=== PATIENT | male | born 1950 | race Caucasian/White ===

== ENCOUNTER 2017-12-28 22:49 | Observation (INO) | payer MEDICARE, OTHER ==
[2017-12-28] MEDS ORDERED: ASPIRIN 81 MG PO STA (23:05)
[2017-12-28] MEDS ORDERED: SODIUM CHLORIDE 0.9% 1,000 ML IV STA (23:05)
[2017-12-28] MEDS ORDERED: MORPHINE SULFATE 4 MG/ML SYRINGE IV PRN (23:05)
[2017-12-28] MEDS ORDERED: HEPARIN SODIUM,PORCINE 5,000 UNIT/ML 1 ML VIAL IV ONE (23:05)
[2017-12-28] MEDS ORDERED: HEPARIN SODIUM,PORCINE 5,000 UNIT/ML 1 ML VIAL IV PRN (23:05)
[2017-12-28] MEDS ORDERED: NITROGLYCERIN SL TABS 0.4 MG TAB SUBLINGUAL PRN (23:05)
--- NOTE | 2017-12-28 23:10 | ED ---
General Adult HPI - General Chief complaint: Chest Pain Stated complaint: chest pain Time Seen by Provider: 12/28/17 22:56 Source: EMS, RN notes reviewed, old records reviewed Mode of arrival: EMS Limitations: no limitations - History of Present Illness Initial comments: This is a 67-year-old male to the ER for evaluation of chest pain. Patient has history of high blood pressure high cholesterol. Patient has multiple ER visits for chest pain in the past but no significant heart attack. Patient has recent travel history no sick contacts no fevers. Patient was shoveling is nontender right-sided chest pain, he did go inside without continued symptoms, chest pain improved but occasionallyhad SOB tonight and again had severe chest pain tonight. States patient told them to call EMS which they never have done in the past. Patient has never come the hospital per EMS his chest pain is significantly worse at this time. Patient felt warm but no significant diaphoresis, no current shortness of breath - Related Data Home Medications Medication Instructions Recorded Confirmed Aspirin 81 mg PO DAILY 02/13/15 12/28/17 Atorvastatin [Lipitor] 80 mg PO HS 02/13/15 12/28/17 Cholecalciferol (Vitamin D3) 2,000 unit PO DAILY 12/28/17 12/28/17 [Vitamin D3] Losartan Potassium [Cozaar] 25 mg PO DAILY 12/28/17 12/28/17 Tamsulosin [Flomax] 0.4 mg PO HS 12/28/17 12/28/17 Allergies Allergy/AdvReac Type Severity Reaction Status Date / Time No Known Allergies Allergy Verified 12/28/17 23:05 Review of Systems ROS Statement: Those systems with pertinent positive or pertinent negative responses have been documented in the HPI. ROS Other: All systems not noted in ROS Statement are negative. Past Medical History Past Medical History: Hyperlipidemia, Hypertension History of Any Multi-Drug Resistant Organisms: None Reported Past Surgical History: Back Surgery Past Anesthesia/Blood Transfusion Reactions: No Reported Reaction Past Psychological History: No Psychological Hx Reported Smoking Status: Never smoker Past Alcohol Use History: Occasional Past Drug Use History: None Reported - Past Family History Mother Family Medical History: Cancer Brother(s) Family Medical History: AFIB, Diabetes Mellitus, Myocardial Infarction ([place]) Additional Family Medical History / Comment(s): CABG General Exam Limitations: no limitations General appearance: alert, in no apparent distress Head exam: Present: atraumatic, normocephalic, normal inspection Eye exam: Present: normal appearance, PERRL, EOMI. Absent: scleral icterus, conjunctival injection, periorbital swelling ENT exam: Present: normal exam, mucous membranes moist Neck exam: Present: normal inspection. Absent: tenderness, meningismus, lymphadenopathy Respiratory exam: Present: normal lung sounds bilaterally. Absent: respiratory distress, wheezes, rales, rhonchi, stridor Cardiovascular Exam: Present: regular rate, normal rhythm, normal heart sounds. Absent: systolic murmur, diastolic murmur, rubs, gallop, clicks GI/Abdominal exam: Present: soft, normal bowel sounds. Absent: distended, tenderness, guarding, rebound, rigid Extremities exam: Present: normal inspection, full ROM, normal capillary refill. Absent: tenderness, pedal edema, joint swelling, calf tenderness Back exam: Present: normal inspection Neurological exam: Present: alert, oriented X3, CN II-XII intact Psychiatric exam: Present: normal affect, normal mood Skin exam: Present: warm, dry, intact, normal color. Absent: rash Course Vital Signs 12/28/17 12/29/17 22:57 00:10 Temperature 97.2 F L Pulse Rate 87 73 Respiratory 18 18 Rate Blood Pressure 154/80 152/85 O2 Sat by Pulse 97 97 Oximetry - Reevaluation(s) Reevaluation #1: 12/28/17 23:08 Medical record is reviewed, prior heart and chest pain observations Reevaluation #2: 12/28/17 23:08 Chest pain symptoms improved with nitro per EMS EKG Findings - EKG Comments: EKG Findings:: EKG shows sinus rhythm rate of 75, MD 150, QRS 74, QTC 437 Medical Decision Making - Medical Decision Making 67 male the ER for evaluation regarding chest pain. Patient be admitted for cardiac observation, serial troponins telemetry and anticoagulation - Lab Data Result diagrams: 12/29/17 05:20 12/28/17 23:09 - Radiology Data Radiology results: report reviewed (Chest x-rays negative for acute disease), image reviewed Critical Care Time Critical Care Time: Yes Total Critical Care Time: 31 Disposition Clinical Impression: Chest pain Disposition: ADMITTED IP TO THIS [facility] Condition: Undetermined
[2017-12-28] MEDS ORDERED: HEPARIN SOD,PORK IN 0.45% NACL 25,000 UNIT in 0.45% NACL 1 500ML.BAG IV SCH (23:15)
[2017-12-28 23:26] LABS: Basophils # (A) 0.1 k/uL (0-0.2); Basophils % (A) 1 %; Eosinophils # (A) 0.1 k/uL (0-0.7); Eosinophils % (A) 2 %; HCT 43.7 % (39.0-53.0); HGB 14.4 gm/dL (13.0-17.5); Lymphocytes # (A) 2.2 k/uL (1.0-4.8); Lymphocytes % (A) 29 %; MCH 28.5 pg (25.0-35.0); MCV 86.5 fL (80.0-100.0); Mean Platelet Volume 8.1; Monocytes # (A) 0.7 k/uL (0-1.0); Monocytes % (A) 9 %; Neutrophils # (A) 4.1 k/uL (1.3-7.7); Neutrophils % (A) 56 %; Platelet Count 184 k/uL (150-450); RBC 5.06 m/uL (4.30-5.90); RDW 12.5 % (11.5-15.5); WBC 7.4 k/uL (3.8-10.6)
--- NOTE | 2017-12-28 23:34 | XR ---
EXAMINATION TYPE: XR chest 2V DATE OF EXAM: 12/28/2017 COMPARISON: 12/23/2012 HISTORY: Short of breath. Chest tightness. TECHNIQUE: Frontal and lateral views of the chest are obtained. FINDINGS: Heart and mediastinum are normal. Lungs are clear. Diaphragm is normal. Bony thorax is int act. IMPRESSION: Normal chest. No change.
[2017-12-28 23:42] LABS: Partial Thromboplastin Time 24.5 sec (22.0-30.0); Prothrombin Time 10.2 sec (9.0-12.0)
[2017-12-28 23:43] LABS: ALT 42 U/L (21-72); AST 32 U/L (17-59); Albumin 4.1 g/dL (3.5-5.0); Alkaline Phosphatase 67 U/L (38-126); Anion Gap 12 mmol/L; Blood Urea Nitrogen 19 mg/dL (9-20); Calcium 9.5 mg/dL (8.4-10.2); Carbon Dioxide 24 mmol/L (22-30); Chloride 105 mmol/L (98-107); Glucose 136 mg/dL (74-99); Lipase 74 U/L (23-300); Magnesium 2.1 mg/dL (1.6-2.3); Potassium 4.1 mmol/L (3.5-5.1); Sodium 141 mmol/L (137-145); Total Bilirubin 0.4 mg/dL (0.2-1.3); Total Protein 7.3 g/dL (6.3-8.2)
[2017-12-28 23:52] LABS: Creatine Kinase 255 U/L (55-170)
[2017-12-29 00:06] LABS: Creatine Kinase MB 1.8 ng/mL (0.0-2.4); Troponin I <0.012 ng/mL (0.000-0.034)
[2017-12-29 01:14] VITALS: RESP 16
[2017-12-29 01:49] VITALS: BMI 34.0
[2017-12-29 06:04] LABS: Mean Platelet Volume 8.1; Platelet Count 168 k/uL (150-450)
[2017-12-29 06:19] LABS: Cholesterol 134 mg/dL (<200); HDL Cholesterol 42 mg/dL (40-60); LDL Cholesterol,Calculated 66 mg/dL (0-99); Triglycerides 128 mg/dL (<150)
[2017-12-29 06:25] LABS: Creatine Kinase 214 U/L (55-170)
[2017-12-29 06:37] LABS: Creatine Kinase MB 1.5 ng/mL (0.0-2.4); Troponin I <0.012 ng/mL (0.000-0.034)
[2017-12-29] MEDS ORDERED: ATORVASTATIN 80 MG TAB PO SCH ×2 (09:00→21:00)
[2017-12-29] MEDS ORDERED: METOPROLOL TARTRATE 25 MG TAB PO SCH (09:00)
[2017-12-29] MEDS ORDERED: LOSARTAN 25 MG TAB PO SCH (09:00)
[2017-12-29] MEDS ORDERED: ASPIRIN 81 MG PO SCH (09:00)
[2017-12-29] MEDS ORDERED: ASPIRIN 325 MG TAB PO SCH (09:00)
[2017-12-29] MEDS ORDERED: CHOLECALCIFEROL 1,000 UNIT TAB PO SCH (09:00)
--- NOTE | 2017-12-29 09:06 | CONS ---
CONSULTATION Mr. Mendez is 67-year-old male known history of hypertension, hyperlipidemia, who presented with symptoms of chest discomfort. Yesterday, he was shoveling some snow and complained of right-sided discomfort, worse when he moves his arm. He came inside and subsequently started to feel somewhat dyspneic and having some discomfort on and off. The discomfort was tightness like at the time of my evaluation. He is pain-free. He is quite active physically and has no exertional chest discomfort. He has no prior history of cardiac disease. He has no history of dizziness, palpitation, or syncope. No history of PND, orthopnea, or peripheral edema. His coronary risk factors are remarkable for hypertension, hyperlipidemia. He is a nonsmoker, nondiabetic. MEDICATION: His medications at home include Flomax 0.4 mg daily, Cozaar 25 mg daily, Lipitor 80 mg daily, aspirin once a day, and vitamin D. REVIEW OF SYSTEMS: RESPIRATORY SYSTEM: He has no recent wheezing. No cough. No history of obstructive lung disease. GI SYSTEM: No recent GI bleed. No peptic ulcer disease. SYSTEM: No dysuria or hematuria. NERVOUS SYSTEM: No stroke or seizure. PHYSICAL EXAMINATION: A 67-year-old male, alert, oriented in no apparent distress. Blood pressure 141/80 with the heart rate in the 60s. HEAD: Normocephalic. EYES: Sclerae anicteric. NECK: Good upstroke. No bruit. No jugular venous distention. LUNGS: Clear to auscultation. HEART: Regular rate and rhythm. S1, S2. No S3, no S4. No murmur or rub. ABDOMEN: Soft, nontender. Positive bowel sounds. Obese. No organomegaly. EXTREMITIES: No edema. Intact distal pulses. LAB DATA: Lab data revealed troponin less than 0.012 for 2 samples. NT proBNP of 38. BUN and creatinine 19 and 1.1. Potassium 4.1. Hemoglobin 14.4. Cholesterol 134, LDL of 66. EKG revealed a sinus mechanism, normal axis and intervals, rare PVCs. No acute changes. Chest x-ray revealed no acute infiltrate. IMPRESSION: 1. Chest discomfort of unclear etiology in a patient with a history of hypertension and hyperlipidemia. 2. History of hypertension. 3. Hyperlipidemia. RECOMMENDATION: I will stop the heparin and I would proceed with a stress myocardial perfusion imaging as well as an echocardiogram and depending on the results of the testing, further recommendation will be made. Those findings and recommendation were discussed with the patient and his family and they are in full understanding and agreement. Thank you for this consult. We will follow with you. ARMANI / KENTRELLN: [id number] /
--- NOTE | 2017-12-29 10:34 | NM ---
EXAMINATION TYPE: NM stress cardiolite complete DATE OF EXAM: 12/29/2017 COMPARISON: Prior nuclear medicine Cardiolite study December 25, 2012 HISTORY: Family history of heart attack, personal history of hypertension and hypercholesterolemia pr esents with chest pain and difficulty in breathing. TECHNIQUE: After the intravenous administration of 11 mCi Tc 99m Sestamibi - Rest images obtained 45 minutes post injection. The patient exercised using a MORRIS protocol and 1 minute prior to peak ex ercise was injected with 28.6 mCi Tc 99m Sestamibi - Stress images obtained 20 minutes post injection . FINDINGS: Targeted heart rate was achieved during performance of the study. Review of stress and rest SPECT luigi ges demonstrates no distinct perfusion abnormality. Gated analysis shows normal wall motion with an estimated left ventricular ejection fraction of 53 %. IMPRESSION: No scintigraphic evidence for reversible ischemia
[2017-12-29 11:34] LABS: Creatine Kinase 213 U/L (55-170)
[2017-12-29 11:35] VITALS: BP 159/89; PULSE 61; TEMP 97.7
[2017-12-29 11:46] LABS: Creatine Kinase MB 1.5 ng/mL (0.0-2.4); Troponin I <0.012 ng/mL (0.000-0.034)
--- NOTE | 2017-12-29 16:38 | ECHOF ---
Referral Reason:cp MEASUREMENTS -------- HEIGHT: 175.3 cm WEIGHT: 104.3 kg BP: RVIDd: 3.6 cm (< 3.3) IVSd: 1.3 cm (0.6 - 1.1) LVIDd: 4.7 cm (3.9 - 5.3) LVPWd: 0.9 cm (0.6 - 1.1) IVSs: 1.7 cm LVIDs: 2.8 cm LVPWs: 1.3 cm LA Diam: 3.7 cm (2.7 - 3.8) LAESV Index (A-L): 19.63 ml/m Ao Diam: 3.2 cm (2.0 - 3.7) AV Cusp: 1.7 cm (1.5 - 2.6) LA Diam: 3.9 cm (2.7 - 3.8) MV EXCURSION: 20.824 mm (> 18.000) MV EF SLOPE: 127 mm/s (70 - 150) EPSS: 0.3 cm MV E John: 0.36 m/s MV DecT: 382 ms MV A John: 0.54 m/s MV E/A Ratio: 0.67 RAP: 5.00 mmHg RVSP: 24.64 mmHg FINDINGS -------- Sinus rhythm. This was a technically adequate study. The left ventricular size is normal. There is mild concentric left ventricular hypertrophy. Overa ll left ventricular systolic function is normal with, an EF between 55 - 60 %. The right ventricle is mild to moderately enlarged. The left atrial size is normal. The right atrial size is normal. There is mild aortic valve sclerosis. There is no evidence of aortic regurgitation. The mitral valve is normal. Mild mitral regurgitation is present. Mild tricuspid regurgitation present. There is no evidence of pulmonary hypertension. The right v entricular systolic pressure, as measured by Doppler, is 24.64mmHg. Trace/mild (physiologic) pulmonic regurgitation. The aortic root size is normal. There is no pericardial effusion. CONCLUSIONS -------- 1. Sinus rhythm. 2. This was a technically adequate study. 3. The left ventricular size is normal. 4. There is mild concentric left ventricular hypertrophy. 5. Overall left ventricular systolic function is normal with, an EF between 55 - 60 %. 6. The right ventricle is mild to moderately enlarged. 7. The left atrial size is normal. 8. There is mild aortic valve sclerosis. 9. Mild mitral regurgitation is present. 10. Mild tricuspid regurgitation present. 11. There is no evidence of pulmonary hypertension. 12. Trace/mild (physiologic) pulmonic regurgitation. 13. The aortic root size is normal. 14. There is no pericardial effusion. OFFICE MESSENGER: Anushka Morel RDCS
--- NOTE | 2017-12-29 17:39 | EST ---
EXERCISE STRESS AGE: 67 SEX: Male. HT: 69" WT: 230 pounds. PROTOCOL: Cardiolite Lalit. STAGE: III DURATION OF EXERCISE: 6:30 HEART RATE REST: 58 BLOOD PRESSURE REST: 148/92 MAXIMUM HEART RATE ACHIEVED: 145 MAXIMUM BLOOD PRESSURE: 179/71 85% MPHR: 132 100% MPHR: 155 METS: 7.9 INDICATIONS: Chest pain. CLINICAL INFORMATION: Baseline rhythm is sinus mechanism, rate of 58, normal axis and intervals, nonspecific T-wave changes inferiorly. Baseline blood pressure 148/92 mmHg. Patient exercised on Lalit protocol for 6 minutes 30 seconds, achieved a peak heart rate of 145 beats per minute, which is equal to 93% of maximum predicted heart rate. Blood pressure 179/71 mmHg , there was no chest pain. Electrocardiograph monitoring revealed no evidence of diagnostic ischemic ST deviation. Rare PVCs were noted. Cardiolite was injected at peak exercise. CONCLUSION: 1. Good exercise tolerance with nondiagnostic electrocardiograph cardiac stress testing secondary to baseline EKG abnormality with rare premature ventricular contractions. 2. Nuclear images will be reported separately. MMODL / IJN: [id number] / MTDD
[2017-12-29] MEDS ORDERED: TAMSULOSIN 0.4 MG CAP.ER.24H PO SCH (21:00)
--- NOTE | 2017-12-30 05:36 | HP ---
HISTORY AND PHYSICAL HISTORY AND PHYSICAL AND DISCHARGE SUMMARY: CHIEF COMPLAINT: Chest pain. HISTORY OF PRESENT ILLNESS: This 67-year-old gentleman with a past history of hypertension, hyperlipidemia, DJD being followed by Dr. Bowen in the outpatient setting also had history of back surgery. The patient has extensive family history of coronary artery disease in multiple members of family in the late 50s and 60s. The patient was complaining of chest pain which was located in the anterior part of the chest and also right-sided chest. The patient apparently was shoveling snow recently. The patient also reports the pain is increasing with respiration. Patient also had previous episodes of pleurisy also. There is no history any palpitations. No headache, loss of consciousness, seizures, nausea or vomiting, diarrhea at this time. PAST MEDICAL HISTORY: History of hypertension, hyperlipidemia, DJD, BPH, plantar fasciitis, back surgery and DJD. MEDICATIONS: Home medications are: 1. Flomax 0.4 daily. 2. Losartan 25 mg daily. 3. Lipitor 80 mg daily. 4. Aspirin 81 mg. 5. Vitamin D3 2000 daily. ALLERGIES: None. FAMILY HISTORY: History of cancer and CABG in the family. Coronary artery disease in multiple members of the family. SOCIAL HISTORY: No history of smoking and no history of alcohol. REVIEW OF SYSTEMS: ENT: No diminished vision and diminished hearing. Cardio system: As mentioned earlier. Respiration no cough or hemoptysis. GI no nausea or vomiting. : No dysuria or retention. Nervous system: No numbness, weakness. Allergy/Immunology: No asthma or hayfever. Musculoskeletal as mentioned earlier. Endocrine: No history of diabetes or hypothyroidism. Constitutional: As mentioned earlier. Dermatology: Negative. Rheumatology: Negative. Psychiatric: As mentioned earlier. PHYSICAL EXAMINATION: Alert oriented x3. Pulse 61, blood pressure 159/80, respiratory rate 16, temperature 97.7, pulse ox 97% on room air. HEENT: Conjunctivae normal. Oral mucosa moist. Neck is no jugular venous distention. No carotid bruit. No lymph node enlargement. Cardiovascular system: S1, S2. No S3, no S4. Respiratory: Breath sounds diminished in the bases. No rhonchi. No crackles. ABDOMEN: Soft, obese, nontender. No mass palpable. Legs: No edema and no swelling. NERVOUS SYSTEM: Higher functions as mentioned earlier. Moves all four limbs. No focal deficits Lymphatics: No lymph nodes palpable in the neck, axillae or groin. Skin no ulcer, rash or bleeding. LAB STUDIES: CBC within normal limits. Glucose is 255, 214. Lipid panel is normal and stress test which was the Cardiolite stress test which was done today showed no scintigraphic evidence of reversible ischemia. An echocardiogram was recommended by Cardiology which showed ejection fraction 50% to 60% and mild valvular abnormalities., ASSESSMENT: 1. Chest pain, possibly musculoskeletal or pleuritic. 2. Negative stress test. 3. History of hypertension. 4. History hyperlipidemia. 5. History of degenerative joint disease. 6. History of benign prostatic hypertrophy. 7. History of plantar fasciitis. 8. Extensive family history of coronary artery disease. RECOMMENDATIONS AND DISCUSSION: In this 67-year-old gentleman who presented with multiple complex medical issues, we will monitor the patient closely, continue the current medications, symptomatic treatment. Otherwise at this time the patient is being discharged with the following advice and medications with further plans to follow closely with Cardiology as well as Dr. Bowen in the outpatient setting. DISCHARGE MEDICATIONS: 1. Aspirin 81 mg p.o. daily. 2. Lipitor 80 mg q.h.s. 3. Vitamin D3 2000 daily. 4. Cozaar 25 mg daily. 5. Flomax 0.4 q.h.s. On again, the patient is being discharged in stable condition with guarded prognosis. MMODL / IJN: [id number] /
== END 2017-12-29 13:08 | disposition home or self-care (01) ==
LOC: EC 22:49 → 3OBS 23:07
PROVIDERS: ADMIT Hospitalist; ATTEND Hospitalist
DX: R07.89 Other chest pain (principal); I10 Essential (primary) hypertension; E78.5 Hyperlipidemia, unspecified; N40.0 Benign prostatic hyperplasia without lower urinary tract symptoms; M19.90 Unspecified osteoarthritis, unspecified site; Z87.39 Personal history of other diseases of the musculoskeletal system and connective tissue; Z87.09 Personal history of other diseases of the respiratory system; Z79.82 Long term (current) use of aspirin; Z79.899 Other long term (current) drug therapy; Z82.49 Family history of ischemic heart disease and other diseases of the circulatory system; Z80.9 Family history of malignant neoplasm, unspecified
CPT/HCPCS: 99291 ×2; 96365 ×2; 96376 ×2; 36415; 93005; 93017; 93306; 85379; 83880; 80061; 80053; 82550 ×2; 82553 ×2; 83690; 83735; 84484 ×2; 85025; 85049; 85610; 85730 ×2; 71046; 78452; G0378 ×2; A9500; J1644 ×2

== ENCOUNTER → 2019-05-28 | Outpatient (CLI) | payer MEDICARE, OTHER ==
[2019-05-28 09:11] LABS: Basophils # (A) 0.1 k/uL (0-0.2); Basophils % (A) 1 %; Eosinophils # (A) 0.3 k/uL (0-0.7); Eosinophils % (A) 5 %; HCT 42.7 % (39.0-53.0); HGB 14.5 gm/dL (13.0-17.5); Lymphocytes # (A) 2.1 k/uL (1.0-4.8); Lymphocytes % (A) 31 %; MCH 28.6 pg (25.0-35.0); Mean Platelet Volume 8.4; Monocytes # (A) 0.5 k/uL (0-1.0); Monocytes % (A) 8 %; Neutrophils # (A) 3.6 k/uL (1.3-7.7); Neutrophils % (A) 53 %; Platelet Count 217 k/uL (150-450); RBC 5.08 m/uL (4.30-5.90); RDW 13.8 % (11.5-15.5); WBC 6.8 k/uL (3.8-10.6)
[2019-05-28 09:31] LABS: Calcium 9.6 mg/dL (8.4-10.2); Potassium 4.6 mmol/L (3.5-5.1)
== END | disposition home or self-care (01) ==
LOC: LABPAT 08:21
PROVIDERS: ATTEND Urology
DX: Z01.812 Encounter for preprocedural laboratory examination (principal); Z79.899 Other long term (current) drug therapy; C61 Malignant neoplasm of prostate
CPT/HCPCS: 36415; 80048; 85025

== ENCOUNTER 2019-06-01 11:50 | Day surgery (SDC) | payer MEDICARE, OTHER ==
[2019-05-30 13:13] VITALS: BMI 34.8
--- NOTE | 2019-05-30 21:58 | P.GSHP ---
History of Present Illness H&P Date: 05/30/19 Chief Complaint: Prostate cancer The patient is a 69-year-old white male found to have an elevated PSA level of 6.2. MIGUEL revealed the prostate to be enlarged but smooth. The patient has no family history of prostate cancer. He underwent a prostate ultrasound, revealing a prostate volume of 69 mL with no echogenic abnormalities. Biopsies revealed a focus of [place] 7 (3+4) adenocarcinoma at the left lateral apex. Alternative treatment options have been reviewed at length, which include active surveillance, IMRT, and robotic-assisted laparoscopic prostatectomy. He has elected to be treated with IMRT. He will undergo SpaceOAR hydrogel implant to reduce the likelihood of rectal toxicity. - Cardiovascular Cardiovascular: Reports high blood pressure - Genitourinary (Female) Genitourinary: Reports nocturia Past Medical History Past Medical History: Cancer, Hyperlipidemia, Hypertension, Prostate Disorder, Skin Disorder Additional Past Medical History / Comment(s): BPH. PROSTATE CA 04/2019. LIGHT RASH FOREARMS, BACK LEGS. History of Any Multi-Drug Resistant Organisms: None Reported Past Surgical History: Back Surgery, Orthopedic Surgery Additional Past Surgical History / Comment(s): CERVICAL SPINAL FUSION. LT Thumb surgery, after cut with skill saw. Past Anesthesia/Blood Transfusion Reactions: No Reported Reaction Smoking Status: Never smoker - Past Family History Mother Family Medical History: Cancer Brother(s) Family Medical History: AFIB, Diabetes Mellitus, Myocardial Infarction ([place]) Additional Family Medical History / Comment(s): CABG Medications and Allergies Home Medications Medication Instructions Recorded Confirmed Type Aspirin 81 mg PO DAILY 02/13/15 05/30/19 History Atorvastatin [Lipitor] 80 mg PO HS 02/13/15 05/30/19 History Cholecalciferol (Vitamin D3) 2,000 unit PO DAILY 12/28/17 05/30/19 History [Vitamin D3] Tamsulosin [Flomax] 0.4 mg PO HS 12/28/17 05/30/19 History Losartan [Cozaar] 25 mg PO DAILY 05/30/19 05/30/19 History Allergies Allergy/AdvReac Type Severity Reaction Status Date / Time No Known Allergies Allergy Verified 12/28/17 23:05 Surgical - Exam - General well developed, well nourished, no distress - Respiratory normal respiratory effort - Abdomen Abdomen: soft, non tender, no guarding, no rigid, no rebound - Genitourinary normal penis with no external lesions, testicles non-tender - Rectum Rectum: normal sphincter tone, no masses, other (prostate enlarged but smooth) - Psychiatric oriented to time, oriented to person, oriented to place, speech is normal, memory intact Assessment and Plan (1) Malignant neoplasm of prostate Status: Acute Code(s): C61 - MALIGNANT NEOPLASM OF PROSTATE SNOMED Code(s): 805077144 Plan: The patient comes for a SpaceOAR hydrogel implant. He understands the rationale for the procedure, as well as potential risks which include anesthesia, infection, and pelvic discomfort.
[~2019-06-01 11:50] MED LIST: DEXAMETHASONE SOD PHOSPHATE 10 MG/ML 1 ML VIAL IV ONE; HYDROmorphone 0.5 MG/0.5 ML SYRINGE IVP PRN; LACTATED RINGERS 1,000 ML IV SCH; MIDAZOLAM 2 MG/2 ML VIAL IV PRN; ONDANSETRON 4 MG/2 ML VIAL IVP ONE; SCOPOLAMINE 1.5MG/72HR PATCH TRANSDERM ONE
[2019-06-01 12:15] VITALS: RESP 16; TEMP 98.4
[2019-06-01] MEDS ORDERED: LIDOCAINE 1% 20 ML VIAL (10MG/ML) FOR IV START INTRADERMA ONE (12:24)
[2019-06-01] MEDS ORDERED: LIDOCAINE 2% (PF) 20 MG/ML 10 ML AMP SQ ONE ×2 (12:42)
[2019-06-01] MEDS ORDERED: fentaNYL (PF) 50 MCG/ML 2 ML AMP ONE (13:04)
[2019-06-01] MEDS ORDERED: PROPOFOL 10 MG/ML 20 ML VIAL IV ONE (13:04)
[2019-06-01] MEDS ORDERED: MIDAZOLAM 2 MG/2 ML VIAL ONE (13:04)
--- NOTE | 2019-06-01 14:01 | P.OP ---
Date of Procedure: 06/01/19 Preoperative Diagnosis: Adenocarcinoma of the prostate Postoperative Diagnosis: Same Procedure(s) Performed: SpaceOAR Hydrogel Implant Anesthesia: MAC Surgeon: Jerzy Regalado Estimated Blood Loss (ml): 5 IV fluids (ml): 450 Pathology: none sent Indications for Procedure: The patient is a 69-year-old white male found to have an elevated PSA level of 6.2. MIGUEL revealed the prostate to be enlarged but smooth. The patient has no family history of prostate cancer. He underwent a prostate ultrasound, revea ling a prostate volume of 69 mL with no echogenic abnormalities. Biopsies revealed a focus of [place] 7 (3+4) adenocarcinoma at the left lateral apex. Alternative treatment options have been reviewed at length, which include active surveillance, IMRT, and robotic-assisted laparoscopic prostatectomy. He has elected to be treated with IMRT. He will undergo SpaceOAR hydrogel implant to reduce the likelihood of rectal toxicity. Operative Findings: Excellent space created between the prostate and rectum. Description of Procedure: The patient was taken to the operating room and placed in the dorsolithotomy position, with his legs supported in Benjamin stirrups. The external genitalia was prepped and draped sterilely. Using a spinal needle, 1% lidocaine without epinephrine was injected subcutaneously within the perineum in the midline. The Bruel and Kjaer transrectal ultrasound probe was placed intrarectally. The prostate was imaged. The probe was then placed within the stabilizing stand. The spinal needle was then advanced under ultrasonic guidance to the level of the urogenital diaphragm, and lidocaine was used to infiltrate the tissues as the needle was withdrawn. Next, the SpaceOar needle was passed through the midline of the perineum, 1-2 cm anterior to the anal opening. The needle was slowly advanced under ultrasonic guidance until the needle tip was located within the fat plane between the prostate and rectum, at the level of the mid prostate gland. The needle was confirmed to be midline on the axial imaging. A small amount of normal saline was injected for hydrodissection. Next, the SpaceOar components were mixed and loaded into the Y connector per protocol. The Y connector was then connected to the needle, and the components were injected slowly over a course of approximately 12 seconds. Significant distance was created between the prostate and rectum, as desired. It should be noted that at no point was there any concern of rectal perforation. The needle was withdrawn, as well as the transrectal ultrasound probe, and the procedure was terminated. The patient tolerated the procedure well and was taken to the recovery room in stable condition.
[2019-06-01 14:37] VITALS: BP 123/74; PULSE 52
== END 2019-06-01 14:49 | disposition home or self-care (01) ==
LOC: OR 11:50
PROVIDERS: ATTEND Urology
DX: C61 Malignant neoplasm of prostate (principal); I10 Essential (primary) hypertension; E78.5 Hyperlipidemia, unspecified; N40.0 Benign prostatic hyperplasia without lower urinary tract symptoms; Z98.1 Arthrodesis status; Z79.82 Long term (current) use of aspirin; Z79.899 Other long term (current) drug therapy; Z82.49 Family history of ischemic heart disease and other diseases of the circulatory system; Z83.3 Family history of diabetes mellitus
CPT/HCPCS: 55874; C1713; J2250; J1100; J2001; J2405; J0690; J3010; J2704

== ENCOUNTER → 2023-10-25 | Outpatient (CLI) | payer MEDICARE, OTHER ==
--- NOTE | 2023-10-25 12:57 | XR ---
EXAMINATION TYPE: XR knee complete RT DATE OF EXAM: 10/25/2023 COMPARISON: NONE HISTORY: 73-year-old male [id number], right knee pain TECHNIQUE: 3 views FINDINGS: There is mild tricompartmental degenerative spurring. Possible moderate joint space narrowi ng in the medial compartment on the lateral view. Trace suprapatellar knee joint effusion. Extensor m echanism appears intact. No acute fracture, subluxation, or dislocation seen. IMPRESSION: Tricompartmental degenerative spurring. Possible moderate degenerative joint space narrowing in the m edial compartment. No acute osseous abnormality seen.
== END | disposition home or self-care (01) ==
LOC: RADXRYALE 08:42
PROVIDERS: ATTEND Family Medicine
DX: M25.861 Other specified joint disorders, right knee (principal)

== ENCOUNTER 2024-09-29 20:25 | Emergency (ER) | payer MEDICARE, OTHER ==
[2024-09-29 20:43] VITALS: RESP 18; TEMP 98.6
[2024-09-29 20:57] LABS: Basophils # (A) 0.1 k/uL (0-0.2); Basophils % (A) 1 %; Eosinophils # (A) 0.1 k/uL (0-0.7); Eosinophils % (A) 2 %; HCT 41.5 % (39.0-53.0); HGB 14.6 gm/dL (13.0-17.5); Lymphocytes # (A) 2.6 k/uL (1.0-4.8); Lymphocytes % (A) 29 %; MCH 30.1 pg (25.0-35.0); MCHC 35.2 g/dL (31.0-37.0); MCV 85.4 fL (80.0-100.0); Mean Platelet Volume 8.8; Monocytes # (A) 0.7 k/uL (0-1.0); Monocytes % (A) 7 %; Neutrophils # (A) 5.4 k/uL (1.3-7.7); Neutrophils % (A) 60 %; Platelet Count 189 k/uL (150-450); RBC 4.85 m/uL (4.30-5.90); WBC 9.1 k/uL (3.8-10.6)
--- NOTE | 2024-09-29 21:02 | ED ---
Chest Pain HPI - General Source: patient, RN notes reviewed Mode of arrival: wheelchair <Zainab Knox - Last Filed: 09/29/24 21:00> <Pablito Escudero - Last Filed: 09/29/24 22:49> - General Chief Complaint: Chest Pain Stated Complaint: chest pain Time Seen by Provider: 09/29/24 21:00 - History of Present Illness Initial Comments: Quick [id number] male with history of hypertension and hyperlipidemia presenting to the ER with chief complaint of chest pain x 3 days. Describes a nagging, dull pain on the left side of chest worse with lying supine. States he has had this pain intermittently over the course of the last month, however it has been more constant over the past 3 days. States he has a history of pleurisy however this feels different. Denies history of cardiac stents or MIs. Denies blood thinners. (Zainab Knox) Agree with above. Patient notes that he had moved a load of wood. Patient also has tenderness with palpation. No associated symptoms. (Pablito Escudero) - Related Data Home Medications Medication Instructions Recorded Confirmed Aspirin 81 mg PO DAILY 02/13/15 06/01/19 Atorvastatin [Lipitor] 80 mg PO HS 02/13/15 06/01/19 Cholecalciferol (Vitamin D3) 2,000 unit PO DAILY 12/28/17 06/01/19 [Vitamin D3] Tamsulosin [Flomax] 0.4 mg PO HS 12/28/17 06/01/19 Losartan [Cozaar] 25 mg PO DAILY 05/30/19 06/01/19 Allergies Allergy/AdvReac Type Severity Reaction Status Date / Time No Known Allergies Allergy Verified 09/29/24 20:43 Review of Systems ROS Other: All systems not noted in ROS Statement are negative. <Zainab Knox - Last Filed: 09/29/24 21:00> ROS Other: All systems not noted in ROS Statement are negative. Constitutional: Denies: fever, chills Respiratory: Denies: cough, dyspnea, hemoptysis Cardiovascular: Reports: chest pain. Denies: palpitations, orthopnea, edema, syncope Gastrointestinal: Denies: abdominal pain, nausea, vomiting, melena, hematochezia Genitourinary: Denies: dysuria, hematuria Musculoskeletal: Denies: back pain Skin: Denies: rash Neurological: Denies: headache, weakness <Pablito Escudero - Last Filed: 09/29/24 22:49> ROS Statement: Those systems with pertinent positive or pertinent negative responses have been documented in the HPI. EKG Findings - EKG Results: EKG: interpreted by [facility], sinus rhythm (Rate 70 bpm), normal axis, normal QRS, normal ST/T - [place], Pacemaker, Normal: Normal tracing: normal tracing <Pablito Escudero - Last Filed: 09/29/24 22:49> Past Medical History Past Medical History: Cancer, Hyperlipidemia, Hypertension, Prostate Disorder, Skin Disorder Additional Past Medical History / Comment(s): BPH. PROSTATE CA 04/2019. LIGHT RASH FOREARMS, BACK LEGS. History of Any Multi-Drug Resistant Organisms: None Reported Past Surgical History: Back Surgery, Orthopedic Surgery Additional Past Surgical History / Comment(s): CERVICAL SPINAL FUSION. LT Thumb surgery, after cut with skill saw. Past Anesthesia/Blood Transfusion Reactions: No Reported Reaction Past Psychological History: No Psychological Hx Reported Past Alcohol Use History: Occasional Past Drug Use History: None Reported - Past Family History Mother Family Medical History: Cancer Brother(s) Family Medical History: AFIB, Diabetes Mellitus, Myocardial Infarction ([place]) Additional Family Medical History / Comment(s): CABG <Zainab Knox - Last Filed: 09/29/24 21:00> General Exam <Zainab Knox - Last Filed: 09/29/24 21:00> General appearance: alert, in no apparent distress Head exam: Present: atraumatic, normocephalic Eye exam: Present: normal appearance. Absent: scleral icterus, conjunctival injection ENT exam: Present: normal oropharynx Neck exam: Present: normal inspection Respiratory exam: Present: normal lung sounds bilaterally, chest wall tenderness. Absent: respiratory distress, wheezes, rales, rhonchi, stridor, accessory muscle use, decreased breath sounds, prolonged expiratory Cardiovascular Exam: Present: regular rate, normal rhythm, normal heart sounds. Absent: systolic murmur, diastolic murmur, rubs, gallop GI/Abdominal exam: Present: soft. Absent: distended, tenderness, guarding, rebound, rigid, mass Extremities exam: Present: normal inspection, normal capillary refill. Absent: pedal edema, calf tenderness Back exam: Present: normal inspection. Absent: CVA tenderness (R), CVA tenderness (L) Neurological exam: Present: alert Skin exam: Present: warm, dry, intact, normal color. Absent: rash <Pablito Escudero - Last Filed: 09/29/24 22:49> - General Exam Comments Initial Comments: Visual Physical Exam Vital signs reviewed General: Well-appearing, nontoxic, no acute distress. Head: Normocephalic, atraumatic Eyes: PERRLA, EOMI ENT: Airway patent Chest: Nonlabored breathing Skin: No visual rash, normal skin tone Neuro: Alert and oriented 3 Musculoskeletal: No gross abnormalities (Zainab Knox) Course Vital Signs 09/29/24 20:37 Temperature 98.6 F Pulse Rate 64 Respiratory 18 Rate Blood Pressure 160/82 O2 Sat by Pulse 96 Oximetry Chest Pain MDM <Zainab Knox - Last Filed: 09/29/24 21:00> <Pablito Escudero - Last Filed: 09/29/24 22:49> - MDM I completed the quick note portion of this chart signed Zainab Knox PA-C (Zainab Knox) The patient had chest x-ray that I interpreted as negative for acute infiltrate, pneumothorax, acute bony injury Was pt. sent in by a medical professional or institution ([facility], PREPARATION SUPERVISOR, urgent care, hospital, or residential...) When possible be specific @ -[No] Did you speak to anyone other than the patient for history (EMS, parent, family, police, friend...)? What history was obtained from this source @ -[No] Did you review nursing and triage notes (agree or disagree)? Why? @ -[I reviewed and agree with nursing and triage notes] Were old charts reviewed (outside hosp., previous admission, EMS record, old EKG, old radiological studies, urgent care reports/EKG's, residential records)? Report findings @ -[No old charts were reviewed] Differential Diagnosis (chest pain, altered mental status, abdominal pain women, abdominal pain men, vaginal bleeding, weakness, fever, dyspnea, syncope, headache, dizziness, GI bleed, back pain, seizure, CVA, palpatations, mental health, musculoskeletal)? @ -[Differential Chest Pain: Stable Angina, Unstable Angina, STEMI, NSTEMI Aortic Dissection, Pneumothorax, Musculoskeletal, Esophageal Spasm GERD, Cholecystitis, Pancreatitis, Zoster, this is not meant to be an all-inclusive list. EKG interpreted by me (3pts min.). @ -[I interpreted As above] X-rays interpreted by me (1pt min.). @ -[I interpreted as above CT interpreted by me (1pt min.). @ -[None done] U/S interpreted by me (1pt. min.). @ -[None done] What testing was considered but not performed or refused? (CT, X-rays, U/S, labs)? Why? @ -[None] What meds were considered but not given or refused? Why? @ -[None] Did you discuss the management of the patient with other professionals (professionals i.e. , PA, PREPARATION SUPERVISOR, lab, RT, psych nurse, director of social media marketing, hob grinder, teacher, air defence officer, embedded case manager)? Give summary @ -[No] Was smoking cessation discussed for >3mins.? @ -[No] Was critical care preformed (if so, how long)? @ -[No] Were there social determinants of health that impacted care today? How? (Homelessness, low income, unemployed, alcoholism, drug addiction, transportation, low edu. Level, literacy, decrease access to med. care, snf, rehab)? @ -[No] Was there de-escalation of care discussed even if they declined (Discuss DNR or withdrawal of care, Hospice)? DNR status @ -[No] What co-morbidities impacted this encounter? (DM, HTN, Smoking, COPD, CAD, Cancer, CVA, ARF, Chemo, Hep., AIDS, mental health diagnosis, sleep apnea, morbid obesity)? @ -[None] Was patient admitted / discharged? Hospital course, mention meds given and route, prescriptions, significant lab abnormalities, going to OR and other pertinent info. @ -[hospital course] Undiagnosed new problem with uncertain prognosis? @ -[No] Drug Therapy requiring intensive monitoring for toxicity (Heparin, Nitro, Insulin, Cardizem)? @ -[No] Were any procedures done? @ -[No] Diagnosis/symptom? @ -[default] Acute, or Chronic, or Acute on Chronic? @ -[default] Uncomplicated (without systemic symptoms) or Complicated (systemic symptoms)? @ -[default] Side effects of treatment? @ -[No] Exacerbation, Progression, or Severe Exacerbation? @ -[No] Poses a threat to life or bodily function? How? (Chest pain, [place], [place], pneumonia, PE, COPD, DKA, ARF, appy, cholecystitis, CVA, Diverticulitis, Homicidal, Suicidal, threat to staff... and all critical care pts) @ -[No] (Pablito Escudero) Disposition <Zainab Knox - Last Filed: 09/29/24 21:00> Is patient prescribed a controlled substance at d/c from ED?: No <Pablito Escudero - Last Filed: 09/29/24 22:49> Clinical Impression: Chest wall pain Disposition: HOME SELF-CARE Condition: Good Instructions (If sedation given, give patient instructions): Chest Wall Pain (ED) Referrals: Alvin Bowen DO [Primary Care Provider] - 1-2 days
[2024-09-29 21:11] LABS: Partial Thromboplastin Time 25.8 sec (22.0-30.0); Prothrombin Time 10.6 sec (10.0-12.5)
[2024-09-29 21:16] LABS: ALT 30 U/L (4-49); AST 31 U/L (17-59); African American GFR (CKD) 72 (>60 ml/min/1.73 sqM); Albumin 4.5 g/dL (3.5-5.0); Alkaline Phosphatase 64 U/L (38-126); Anion Gap 9 mmol/L; Blood Urea Nitrogen 19 mg/dL (9-20); Calcium 9.3 mg/dL (8.4-10.2); Carbon Dioxide 24 mmol/L (22-30); Chloride 104 mmol/L (98-107); Glucose 148 mg/dL (74-99); Lipase 90 U/L (23-300); Magnesium 1.9 mg/dL (1.6-2.3); Non-African American GFR(CKD) 62 (>60 ml/min/1.73 sqM); Potassium 3.7 mmol/L (3.5-5.1); Sodium 137 mmol/L (137-145); Total Bilirubin 0.6 mg/dL (0.2-1.3); Total Protein 7.7 g/dL (6.3-8.2)
[2024-09-29 21:24] LABS: NT-Pro-B-Type Natriuretic Pept 25 pg/mL
--- NOTE | 2024-09-29 21:33 | XR ---
EXAMINATION TYPE: XR chest 2V DATE OF EXAM: 09/29/2024 9:27 PM COMPARISON: Previous chest radiograph 12/28/2017. CLINICAL INDICATION: Male, 74 years old with history of Chest Pain; [facility] TECHNIQUE: XR chest 2V Frontal and lateral views of the chest. FINDINGS: Cardiac silhouette within normal limits for size. Right mid lung fluid along the fissure or linear atelectasis. No sizable pleural effusion. No appreciable pneumothorax. No acute osseous abnormality. IMPRESSION: Fluid along the right fissure or mild linear atelectasis. Otherwise, no acute abnormality in the ches t. [facility], , 09/29/2024 9:31 PM
[2024-09-29 22:52] VITALS: BP 181/75; PULSE 67
== END 2024-09-29 22:52 | disposition home or self-care (01) ==
LOC: EC 20:25
DX: R07.89 Other chest pain (principal)
CPT/HCPCS: 36415; 71046; 80053; 83690; 83735; 83880; 84484; 85025; 85379; 85610; 85730; 93005; 99285